=== PATIENT | male | born 1940 | race Caucasian/White ===

== ENCOUNTER → 2016-10-02 | Outpatient (CLI) | payer OTHER ==
[2016-10-02 14:03] LABS: BLOOD UREA NITROGEN 12 mg/dl (7-18); BUN/CREATININE RATIO 12.1 (10-20); CALCIUM 8.9 mg/dl (8.5-10.1); CARBON DIOXIDE 31 mmol/L (21-32); CHLORIDE 102 mmol/L (98-107); CREATININE 0.98 mg/dl (0.60-1.40); GLUCOSE 131 mg/dl (70-99); POTASSIUM 4.1 mmol/L (3.5-5.1); SODIUM 140 mmol/L (136-145)
== END | disposition home or self-care (01) ==
LOC: C.LABMFLN 06:57
PROVIDERS: ATTEND Family Medicine
DX: I10 Essential (primary) hypertension (principal); E11.29 Type 2 diabetes mellitus with other diabetic kidney complication

== ENCOUNTER → 2017-01-09 | Outpatient (CLI) | payer OTHER ==
[2017-01-09 13:26] LABS: ALT/SGPT 20 U/L (12-78); BLOOD UREA NITROGEN 19 mg/dl (7-18); BUN/CREATININE RATIO 19.3 (10-20); CALCIUM 9.2 mg/dl (8.5-10.1); CARBON DIOXIDE 32 mmol/L (21-32); CHLORIDE 102 mmol/L (98-107); CHOLESTEROL 120 mg/dl (0-200); GLUCOSE 127 mg/dl (70-99); POTASSIUM 4.4 mmol/L (3.5-5.1); SODIUM 140 mmol/L (136-145); TRIGLYCERIDES 155 mg/dl (0-150); VERY LOW DENSITY LIPOPROT CALC 31 mg/dl
[2017-01-09 13:29] LABS: ALB/GLOB RATIO 0.9 (0.9-2); ALKALINE PHOSPHATASE 82 U/L (45-117); AST/SGOT 13 U/L (15-37); CHOLESTEROL/HDL RATIO 2.4; HDL CHOLESTEROL 50 mg/dl; LDL CHOLESTEROL CALCULATED 39 mg/dl
[2017-01-09 13:40] LABS: ESTIMATED AVERAGE GLUCOSE 160 mg/dl; HA1C FLAG Normal (Normal)
== END | disposition home or self-care (01) ==
LOC: C.LABMFLN 07:31
PROVIDERS: ATTEND Family Medicine
DX: E78.5 Hyperlipidemia, unspecified (principal); I10 Essential (primary) hypertension; I25.10 Atherosclerotic heart disease of native coronary artery without angina pectoris; E11.29 Type 2 diabetes mellitus with other diabetic kidney complication

== ENCOUNTER → 2017-06-30 | Outpatient (CLI) | payer OTHER, MEDICARE ==
[2017-06-30 13:11] LABS: BASO % 0.7 %; BASO ABS # 0.06 K/uL (0-0.2); COMPLETE YES; EOS % 3.2 %; IG% 0.2 %; LYMPH % 24.1 %; LYMPH ABS # 2.21 K/uL (1.2-3.4); MEAN CELL VOLUME 82.1 fL (80-100); MEAN CORPUSCULAR HEMOGLOBIN 25.9 pg (25-34); MEAN CORPUSCULAR HGB CONC 31.5 g/dl (32-36); MEAN PLATELET VOLUME 9.8 fL (7.4-10.4); MONO % 9.3 %; NEUT % 62.5 %; PLATELET COUNT 274 K/uL (130-400); RED BLOOD COUNT 4.75 M/uL (4.7-6.1); WHITE BLOOD COUNT 9.18 K/uL (4.8-10.8)
[2017-06-30 13:21] LABS: ESTIMATED AVERAGE GLUCOSE 160 mg/dl; HA1C FLAG Normal (Normal)
[2017-06-30 13:57] LABS: ALT/SGPT 12 U/L (12-78); BLOOD UREA NITROGEN 27 mg/dl (7-18); BUN/CREATININE RATIO 24.3 (10-20); CALCIUM 9.3 mg/dl (8.5-10.1); CARBON DIOXIDE 31 mmol/L (21-32); CHLORIDE 103 mmol/L (98-107); CHOLESTEROL 136 mg/dl (0-200); GLUCOSE 120 mg/dl (70-99); POTASSIUM 4.3 mmol/L (3.5-5.1); SODIUM 138 mmol/L (136-145); TRIGLYCERIDES 171 mg/dl (0-150); VERY LOW DENSITY LIPOPROT CALC 34 mg/dl
[2017-06-30 14:00] LABS: ALB/GLOB RATIO 0.9 (0.9-2); ALKALINE PHOSPHATASE 87 U/L (45-117); AST/SGOT 12 U/L (15-37); HDL CHOLESTEROL 45 mg/dl; LDL CHOLESTEROL CALCULATED 57 mg/dl
== END | disposition home or self-care (01) ==
LOC: C.LABMFLN 07:42
PROVIDERS: ATTEND Family Medicine
DX: E78.5 Hyperlipidemia, unspecified (principal); E11.9 Type 2 diabetes mellitus without complications; I10 Essential (primary) hypertension; I48.91 Unspecified atrial fibrillation; D50.9 Iron deficiency anemia, unspecified; J44.9 Chronic obstructive pulmonary disease, unspecified; E11.29 Type 2 diabetes mellitus with other diabetic kidney complication